=== PATIENT | male | born 1970 | race Two or more races ===

== ENCOUNTER 2025-08-13 09:42 | Emergency (ER) | payer MEDICAID, OTHER ==
[~2025-08-13] VITALS: Ht 180.3 cm; Wt 95.9 kg
--- NOTE | 2025-08-13 10:36 | ED.PDOC ---
Back pain HPI HPI Comments A 54 YEAR OLD MALE PRESENTS TO THE ED WITH COMPLAINT OF LEFT SHOULDER PAIN AND UPPER BACK PAIN THAT STARTED 1 WEEK AGO. PATIENT REPORTS HAVING A HEAVY LABORED JOB THAT REQUIRES HIM TO BEND, TWIST, AND LIFT CONSTANTLY. PATIENT DENIES ANY RECENT FALLS, INJURIES, NUMBNESS, OR TINGLING SENSATION. PATIENT DENIES FEVER, CHILLS, SHORTNESS OF BREATH, CHEST PAIN, ABDOMINAL PAIN, NAUSEA, VOMITING, HEADACHE, OR OTHER COMPLAINTS. NO OTHER SYMPTOMS OR MODIFYING FACTORS AT THIS TIME. PATIENT IS ALERT, ORIENTED X 4, AND HAS STEADY GAIT. Chief Complaint: Upper Extremity Time Seen by MD: 10:25 Reviewed Notes: Nurses Notes, Medications, Allergies Home Meds Active Scripts Ibuprofen (Ibuprofen) 800 Mg Tab, 1 TAB PO TID, #30 TAB Prov:KELSI ARGUETA 08/13/25 Information Source: Patient Mode of Arrival: Ambulatory Timing: Weeks (1) Duration: Since onset Location of Back pain: (B) Upper back Severity: Moderate Quality: Sharp Onset: Bending, Twisting, Fall, Lifing Circumstance: Other History of: None Modifying Factors: Movement Associated signs and symptoms: None Past Medical History PAST MEDICAL HISTORY: Denies Surgical History: Denies all surgeries Family History Family History: Reviewed,noncontributory to illness Social History Smoker: Non-Smoker Alcohol: Denies ETOH Use Drugs: Denies Drug Use Lives In: Home Constitutional: denies: chills, diaphoresis, fatigue, fever, malaise, sweats, weakness, others EENTM: denies: blurred vision, double vision, ear bleeding, ear discharge, ear drainage, ear pain, ear ringing, eye pain, eye redness, hearing loss, mouth pain, mouth swelling, nasal discharge, nose bleeding, nose congestion, nose pain, photophobia, tearing, throat pain, throat swelling, voice changes, others Respiratory: denies: cough, hemoptysis, orthopnea, SOB at rest, shortness of breath, SOB with excertion, stridor, wheezing, others Cardiovascular: denies: chest pain, dizzy spells, diaphoresis, Dyspnea on exertion, edema, irregular heart beat, left arm pain, lightheadedness, palpitations, PND, syncope, others Gastrointestinal: denies: abdomen distended, abdominal pain, blood streaked bowels, constipated, diarrhea, dysphagia, difficulty swallowing, hematemesis, melena, nausea, poor appetite, poor fluid intake, rectal bleeding, rectal pain, vomiting, others Genitourinary: denies: burning, dysuria, flank pain, frequency, hematuria, incontinence, penile discharge, penile sore, pain, testicle pain, testicle swelling, urgency, others Neurological: reports: dizziness, others (LEFT SHOULDER PAIN ); denies: fainting, headache, left sided numbness, left sided weakness, numbness, paresthesia, pre-existing deficit, right sided numbness, right sided weakness, s eizure, speech problems, tingling, tremors, weakness Musculoskeletal: reports: back pain, muscle pain; denies: gout, joint pain, joint swelling, muscle stiffness, neck pain, others Integumetry: denies: bruises, change in color, change in hair/nails, dryness, laceration, lesions, lumps, rash, wounds, others Allergic/Immunocompromised: denies: Difficulty Healing, Frequent Infections, Hives, Itching, others Hematologic/Lymphatic: denies: anemia, blood clots, easy bleeding, easy bruising, swollen glands, others Endocrine: denies: excessive hunger, excessive sweating, excessive thirst, excessive urination, flushing, intolerance to cold, intolerance to heat, unexplained weight gain, unexplained weight loss, others Psychiatric: denies: anxiety, bipolar disorder, depression, hopeless, panic disorder, schizophrenia, sleepless, suicidal, others All Other Systems: Reviewed and Negative Physical Exam General Appearance: No Apparent Distress, Normal HEENT: Normal ENT Inspection, PERRL/EOMI, Pharynx Normal, TMs Normal Neck: Full Range of Motion, Non-Tender, Normal, Normal Inspection Respiratory: Chest Non-Tender, Lungs Clear, No Accessory Muscle Use, No Respiratory Distress, Normal Breath Sounds Cardiovascular: No Edema, No JVD, No Murmur, No Gallop, Normal Peripheral Pulses, Regular Rate/Rhythm Breast Exam: Deferred Gastrointestinal: No Organomegaly, Non Tender, No Pulsatile Mass, Normal Bowel Sounds, Soft Genitalia: Deferred Pelvic: Deferred Rectal: Deferred Extremities: Decreased range of motion (SLIGHTLY. ), No calf tenderness, Normal capillary refill, Normal inspection, Normal range of motion, No pedal edema, Tender (LEFT POSTERIOR SHOULDER, NO BONY TENDERNESS, SWELLING AND DEFORMITY. ) Musculoskeletal : Apperance: Normal Neurologic: Alert, red lead burner II-XII nml as Tested, No Motor Deficits, Normal Affect, Normal Mood, No Sensory Deficits Cerebellar Function: Normal Reflexes: Normal Skin: Dry, Normal Color, Warm Peripheral Pulses: 2+ carotid (R), 2+ carotid (L) Lymphatic: No Adenopathy Was a procedure done? Was a procedure done?: No EKG EKG : Pulse Rate (adult): 64 [place]: Normal Block: None Hypertrophy: None ST: Normal Back Pain Differential Dx Differential Diagnosis: Fracture, Musculoskeletal Pain X-Ray, Labs, Meds, VS Vital Signs Date Time Temp Pulse Resp B/P (MAP) Pulse Ox O2 Delivery O2 Flow Rate FiO2 08/13/25 11:22 68 18 97 Room Air 08/13/25 11:22 97.9 68 18 142/6 (51) 97 97.9 08/13/25 11:10 68 08/13/25 09:51 97.9 68 18 142/60 97 97.9 X-Ray, Labs, Meds, VS Comment EXTERNAL MEDICAL RECORDS REVIEWED: [NONE] INDEPENDENT HISTORIANS: [NONE] SOCIAL DETERMINANTS OF HEALTH: [NONE] LABS ORDERED: NONE REVIEWED AND INTERPRETED RESULTS: NONE IMAGING ORDERED: ORDERED LEFT SHOULDER X RAY BUT REFUSED. TREATMENTS ORDERED: EKG PROCEDURES PERFORMED: NONE CRITICAL CARE TIME: NONE I HAVE DISCUSSED THE PATIENT WITH THE ATTENDING PHYSICIAN, DR. CHACON, SHE AGREES WITH THE PATIENT'S PLAN OF CARE AND DISPOSITION. PATIENT REFUSED LEFT SHOULDER X RAY, REPORTS HE HAS CHEST PAIN SO EKG WAS DONE WHICH CAME BACK UNREMARKABLE. PATIENT IS AT EASE AND WOULD LIKE TO BE DISCHARGED. BASED ON HISTORY OF PRESENT ILLNESS, AND PHYSICAL EXAM, PATIENT WILL BE DISCHARGED HOME. DISCUSSED PLAN FOR DISCHARGE HOME WITH RX IBUPROFEN 800MG. MEDICATION WARNINGS GIVEN. SHARED DECISION MAKING: DISCUSSED WITH PATIENT THAT THEIR WORKUP WAS NORMAL. PATIENT INSTRUCTED TO FOLLOW UP WITH PRIMARY CARE PROVIDER IN 1-2 DAYS FOR RE- EVALUATION OF SYMPTOMS. PATIENT VERBALIZES UNDERSTANDING TO RETURN TO ED FOR NEW OR WORSENING SYMPTOMS OR IF FOLLOW UP WITH PCP CANNOT BE OBTAINED. PATIENT FEELS COMFORTABLE GOING HOME AT THIS TIME. ALL QUESTIONS ADDRESSED AT TIME OF [facility]AN [facility]EL[facility]. Time of 1ST Reevaluation: 11:30 Reevaluation 1ST: Improved Patient Education/Counseling: Diagnosis, Treatment, Need For Follow Up Family Education/Counseling: Diagnosis, Treatment, Need For Follow Up, No Family Present Medical Screening: No EMC Exist At This Time SEPSIS Sepsis Screen Date sepsis recognized/suspect: Aug 13, 2025 Time Sepsis recognized/suspect: 0954 Recent Procedure: No On Antibiotic Therapy: No Respiratory Rate >20: No Heart Rate >90: No Temp<36 C (96.8 F) or >38.3 C: No SBP <90 or MAP <65 mmHG: No New Acute Mental Status Change: No Is the patient on CPAP, BIPAP,: No Physician Orders Electrocardigram (08/13/25 11:21) Vital Signs Date Time Temp Pulse Resp B/P (MAP) Pulse Ox O2 Delivery O2 Flow Rate FiO2 08/13/25 11:22 68 18 97 Room Air 08/13/25 11:22 97.9 68 18 142/6 (51) 97 97.9 08/13/25 11:10 68 08/13/25 09:51 97.9 68 18 142/60 97 97.9 Departure 1 Departure Time of Disposition: 11:31 Impression: Primary Impression: Muscle strain Disposition: HOME / SELF CARE / HOMELESS Condition: Stable Additional Instructions: F/U PCP IN 2 DAYS RECHECK. IF CONDITION BECOME WORSE, RETURN TO ED [facility]. e-Prescriptions Ibuprofen (Ibuprofen) 800 Mg Tab 1 TAB PO TID, #30 TAB Prov: KELSI ARGUETA 08/13/25 Discharged With: Self Critical Care Note Critical Care Time?: No Stability Stability form required: No I personally scribed for KELSI ARGUETA ([email or web address]) on 08/13/25 at 10:36. Electronically submitted by Onelia Meredith ([facility]INT). I personally scribed for KELSI ARGUETA ([email or web address]) on 08/13/25 at 11:21. Electronically submitted by Onelia Meredith ([facility]CL[facility] FLINT). KELSI ARGUETA Aug 13, 2025 10:36
[2025-08-13] MEDS ORDERED: IBUP-1456 PO (11:19)
[2025-08-13 11:22] VITALS: BP 142/6; RESP 18; TEMP 97.9; O2SAT 97
[2025-08-13 11:32] VITALS: PULSE 64
--- NOTE | 2025-08-13 12:59 | ECG ---
[facility] Test Date: 2025-08-13 Test Time: 11:10:52 Pat Name: RONY ALVARENGA Department: ED Room: Gender: M Community Liaison Officer: ELENA : 1970 Requested By: KELSI ARGUETA Order Number: [id number] Reading MD: Chepe Miguel Measurements Intervals [place] Rate: 68 P: -31 TN: 210 QRS: 6 QRSD: 81 T: 16 QT: 380 QTc: 405 Interpretive Statements Sinus rhythm Borderline prolonged TN interval Minimal ST depression, inferior leads Electronically Signed On 08-14-2025 20:38:04 PDT by Chepe Miguel Please click the below link to view image of tracing.
== END 2025-08-13 11:24 | disposition home or self-care (01) ==
LOC: ER 09:42
DX: S46.912A Strain of unspecified muscle, fascia and tendon at shoulder and upper arm level, left arm, initial encounter (principal); Z79.1 Long term (current) use of non-steroidal anti-inflammatories (NSAID); X58.XXXA Exposure to other specified factors, initial encounter; Y93.89 Activity, other specified; Y92.89 Other specified places as the place of occurrence of the external cause; Y99.8 Other external cause status
CPT/HCPCS: 93005